=== PATIENT | male | born 1945 | race Caucasian/White ===

== ENCOUNTER 2018-08-27 14:21 | Emergency (ER) | payer MEDICARE, OTHER ==
--- NOTE | 2018-08-27 15:13 | ER Document Report ---
ED Medical Screen (RME) - General Chief Complaint: Flank Pain Stated Complaint: ABDOMINAL PAIN Time Seen by Provider: 08/27/18 14:33 Mode of Arrival: Ambulatory Information source: Patient Notes: Patient is a 72-year-old male who recently had a kidney stone diagnosed with a urinary tract infection. Patient was started on Levaquin. Patient states that his pain has persisted. He denies any nausea, vomiting, diarrhea or fevers. He reports he now has bilateral flank pain and pain across his low abdomen. Patient's vital signs are within normal limits, patient appears nontoxic and is in no acute distress. PHYSICAL EXAMINATION: GENERAL: Well-appearing, well-nourished and in no acute distress. HEAD: Atraumatic, normocephalic. EYES: Pupils equal round extraocular movements intact, conjunctiva are normal. ENT: Nares patent NECK: Normal range of motion LUNGS: No respiratory distress Musculoskeletal: Normal range of motion NEUROLOGICAL: Normal speech, normal gait. PSYCH: Normal mood, normal affect. SKIN: Warm, Dry, normal turgor, no rashes or lesions noted. I have greeted and performed a rapid initial assessment of this patient. A comprehensive ED assessment and evaluation of the patient, analysis of test results and completion of the medical decision making process will be conducted by additional ED providers. Dictation of this chart was performed using [email or web address] software; therefore, there may be some unintended grammatical errors. TRAVEL OUTSIDE OF THE [place] IN LAST 30 DAYS: No - Related Data Allergies/Adverse Reactions: Shellfish * [Shellfish] Allergy (Intermediate, Verified 08/27/18 14:25) WHEEZING oxycodone HCl [From Percocet] Allergy (Verified 08/27/18 14:25) Difficulty breathing Past Medical History - Past Medical History Cardiac Medical History: Reports: Hx Coronary Artery Disease - STENT, Hx Heart A ttack, Hx Hypercholesterolemia, Hx Hypertension Pulmonary Medical History: Denies: Hx Asthma, Hx Bronchitis, Hx COPD, Hx Pneumonia Neurological Medical History: Denies: Hx Cerebrovascular Accident, Hx Seizures Endocrine Medical History: Reports: Hx Diabetes Mellitus Type 2 Renal/ Medical History: Denies: Hx Peritoneal Dialysis Musculoskeltal Medical History: Reports Hx Arthritis - LE and UE Past Surgical History: Reports: Hx Cardiac Catheterization - 11 YEARS AGO. Denies: Hx Adenoidectomy - Immunizations Hx Diphtheria, Pertussis, Tetanus Vaccination: Yes Physical Exam - Vital signs Vitals: Temp Pulse Resp BP Pulse Ox 98.4 F 80 18 149/77 H 96 08/27/18 14:30 08/27/18 14:30 08/27/18 14:30 08/27/18 14:30 08/27/18 14:30 Course - Vital Signs Vital signs: Temp Pulse Resp BP Pulse Ox 98.4 F 80 18 149/77 H 96 08/27/18 14:30 08/27/18 14:30 08/27/18 14:30 08/27/18 14:30 08/27/18 14:30
[2018-08-27 15:19] LABS: APPEARANCE,URINE CLEAR; BILIRUBIN,URINE NEGATIVE (NEGATIVE); COLOR,URINE STRAW; GLUCOSE, URINE >=500 mg/dL (NEGATIVE); KETONES,URINE NEGATIVE (NEGATIVE); LEUKOCYTE ESTERASE,URINE SMALL (NEGATIVE); NITRITE,URINE NEGATIVE (NEGATIVE); PROTEIN,URINE NEGATIVE (NEGATIVE); URINE SPECIFIC GRAVITY 1.009; UROBILINOGEN,URINE NEGATIVE mg/dL (<2.0)
[2018-08-27 15:57] LABS: ABSOLUTE EOSINOPHILS # (AUTO) 0.1 10^3/uL (0.0-0.6); ABSOLUTE LYMPHOCYTES (AUTO) 0.9 10^3/uL (0.5-4.7); ABSOLUTE MONOCYTES (AUTO) 1.4 10^3/uL (0.1-1.4); ABSOLUTE NEUT (AUTO) 12.5 10^3/uL (1.7-8.2); BASOPHILS % (AUTO) 0.2 % (0-2); EOSINOPHILS % (AUTO) 0.4 % (0-6); HEMOGLOBIN 15.7 g/dL (13.5-17.0); LYMPHOCYTES % (AUTO) 5.8 % (13-45); MEAN CORPUSCULAR HEMOGLOBIN 29.6 pg (27.0-33.4); MEAN CORPUSCULAR HGB CONC 34.1 g/dL (32.0-36.0); MEAN CORPUSCULAR VOLUME 87 fl (80-97); MONOCYTES % (AUTO) 9.3 % (3-13); PLATELET COUNT 192 10^3/uL (150-450); RED CELL DISTRIBUTION WIDTH 13.8 % (11.5-14.0); SEGMENTED NEUTROPHILS % (AUTO) 84.3 % (42-78); TOTAL CELLS COUNTED % (AUTO) 100 %; WHITE BLOOD COUNT 14.8 10^3/uL (4.0-10.5)
--- NOTE | 2018-08-27 16:04 | RADIOLOGY REPORT (SQ) ---
EXAM DESCRIPTION: U/S RETROPERITON (RENAL/AORTA) COMPLETED DATE/TIME: 08/27/2018 3:39 pm REASON FOR STUDY: eval for renal stone COMPARISON: None. TECHNIQUE: Dynamic and static grayscale images acquired of the kidneys and bladder and recorded on P ACS. Additional selected color Doppler and spectral images recorded. LIMITATIONS: None. FINDINGS: RIGHT KIDNEY: Normal size. Normal echogenicity. No solid or suspicious masses. No hydronep hrosis. No calcifications. LEFT KIDNEY: Normal size. Normal echogenicity. No solid or suspicious masses. No hydronephrosis. No calcifications. BLADDER: No masses. OTHER FINDINGS: No other significant finding. IMPRESSION: NORMAL RENAL AND BLADDER ULTRASOUND. TECHNICAL DOCUMENTATION: JOB ID: [id number] [email or web address]- All Rights Reserved Reading location - IP/workstation name: [email or web address]
[2018-08-27] MEDS ORDERED: ONDANSETRON 4 MG TAB.RAPDIS PO ONE (16:11)
[2018-08-27 16:16] LABS: ALANINE AMINOTRANSFERASE 23 U/L (21-72); ALBUMIN 3.8 g/dL (3.5-5.0); ALKALINE PHOSPHATASE 61 U/L (38-126); ANION GAP 11 (5-19); ASPARTATE AMINO TRANSFERASE 33 U/L (17-59); BILIRUBIN,DIRECT 0.4 mg/dL (0.0-0.4); BILIRUBIN,TOTAL 0.9 mg/dL (0.2-1.3); BLOOD UREA NITROGEN 20 mg/dL (7-20); CARBON DIOXIDE 25 mmol/L (22-30); CHLORIDE 102 mmol/L (98-107); GLUCOSE 130 mg/dL (75-110); SODIUM 137.8 mmol/L (137-145)
[2018-08-27 16:23] LABS: LIPASE 3742.5 U/L (23-300)
--- NOTE | 2018-08-27 16:35 | RADIOLOGY REPORT (SQ) ---
EXAM DESCRIPTION: ABDOMEN 2 VIEWS COMPLETED DATE/TIME: 08/27/2018 4:25 pm REASON FOR STUDY: abdominal pain, constipation COMPARISON: None. NUMBER OF VIEWS: Two views. TECHNIQUE: Supine and erect/decubitus radiographic images of the abdomen acquired. LIMITATIONS: None. FINDINGS: FREE AIR: None. No abnormal gas collections. LUNG BASES: Clear. BOWEL GAS PATTERN: Nonobstructive pattern. No dilated loops or air fluid levels. Marked amount of fe giuliana material in the colon. Fluid level on the right colon. CALCIFICATIONS: No suspicious calcifications. SOFT TISSUES: No gross mass or suggestion of organomegaly. HARDWARE: None in the abdomen. BONES: No acute fracture. No worrisome bone lesions. OTHER: No other significant finding. IMPRESSION: Marked constipation. Fluid level in the right colon. TECHNICAL DOCUMENTATION: JOB ID: [id number] [employer]- All Rights Reserved Reading location - IP/workstation name: [email or web address]
[2018-08-27] MEDS ORDERED: MAGNESIUM CITRATE 296 ML BOTTLE PO ONE (17:13)
--- NOTE | 2018-08-27 17:40 | ER Document Report ---
ED General - General Chief Complaint: Flank Pain Stated Complaint: ABDOMINAL PAIN Time Seen by Provider: 08/27/18 14:33 Primary Care Provider: SWETHA FINE MD [Primary Care Provider] - Follow up as needed Mode of Arrival: Ambulatory TRAVEL OUTSIDE OF THE [place] IN LAST 30 DAYS: No - HPI Notes: Patient presents to the emergency department for evaluation. He has a multitude of issues. He states back on July 14 he started having "kidney pain." He saw his primary doctor and urologist. He was diagnosed with a potential kidney stone as well as UTI. He states he has frequent UTIs and/or prostatitis. He has a standing prescription for Levaquin which he takes. He denies any fevers or chills. No nausea or vomiting. He states his pain seemed to get better, but over the last several days he feels as if "both of his kidneys" hurt. He states today he started noticing pain in the left lower quadrant. He denies any fever or chills. No nausea or vomiting. Eating and drinking normally. He does relate that he has not had a good bowel movement in the last 5 days. He states he normally moves his bowels daily. - Related Data Allergies/Adverse Reactions: Shellfish * [Shellfish] Allergy (Intermediate, Verified 08/27/18 14:25) WHEEZING oxycodone HCl [From Percocet] Allergy (Verified 08/27/18 14:25) Difficulty breathing Past Medical History - General Information source: Patient - Social History Smoking Status: Former Smoker Drug Abuse: None Family History: Reviewed & Not Pertinent Patient has suicidal ideation: No Patient has homicidal ideation: No - Past Medical History Cardiac Medical History: Reports: Hx Coronary Artery Disease - STENT, Hx Heart Attack, Hx Hypercholesterolemia, Hx Hypertension Pulmonary Medical History: Denies: Hx Asthma, Hx Bronchitis, Hx COPD, Hx Pneumonia Neurological Medical History: Denies: Hx Cerebrovascular Accident, Hx Seizures Endocrine Medical History: Reports: Hx Diabetes Mellitus Type 2 Renal/ Medical History: Denies: Hx Peritoneal Dialysis Musculoskeletal Medical History: Reports Hx Arthritis - LE and UE Past Surgical History: Reports: Hx Cardiac Catheterization - 11 YEARS AGO. Denies: Hx Adenoidectomy - Immunizations Hx Diphtheria, Pertussis, Tetanus Vaccination: Yes Hx Pneumococcal Vaccination: 05/17/10 Review of Systems - Review of Systems Constitutional: No symptoms reported EENT: No symptoms reported Cardiovascular: No symptoms reported Respiratory: No symptoms reported Gastrointestinal: See HPI Genitourinary: See HPI Male Genitourinary: No symptoms reported Musculoskeletal: No symptoms reported Skin: No symptoms reported Neurological/Psychological: No symptoms reported Physical Exam - Vital signs Vitals: Temp Pulse Resp BP Pulse Ox 98.4 F 80 18 149/77 H 96 08/27/18 14:30 08/27/18 14:30 08/27/18 14:30 08/27/18 14:30 08/27/18 14:30 - Notes Notes: Vital signs reviewed, please refer to chart. Patient is normocephalic, atraumatic. Pupils equal round, reactive to light. Neck is supple without meningismus. Heart is regular rate and rhythm. Lungs are clear to auscultation bilaterally. Abdomen is soft, nontender, normoactive bowel sounds throughout. Extremities without cyanosis, clubbing, edema. Peripheral pulses are equal. Sk in is warm and dry. Patient is awake, alert, neurological exam is nonfocal. Course - Re-evaluation Re-evalutation: 08/27/18 17:38 Patient presents to the emergency department for evaluation. He had initial workup as ordered through triage. Ultrasound of the abdomen did not reveal any hydronephrosis. His urine does reveal some continued white blood cells, but he already has a few more days of Levaquin left. I believe this left lower quadrant pain is secondary to constipation. Abdominal films failed to reveal any signs of obstruction. I did go ahead and order magnesium citrate. We will also tell the patient to take MiraLAX, twice daily, until he has improvement in his stool output. He is to continue his antibiotics and follow-up with urology next week. Return to the emergency department with worsening or new concerning symptoms. - Vital Signs Vital signs: Temp Pulse Resp BP Pulse Ox 98.4 F 80 18 149/77 H 96 08/27/18 14:30 08/27/18 14:30 08/27/18 14:30 08/27/18 14:30 08/27/18 14:30 - Laboratory Result Diagrams: 08/27/18 15:45 08/27/18 15:45 Laboratory results interpreted by me: 08/27/18 08/27/18 08/27/18 14:55 15:45 15:45 WBC 14.8 H Seg Neutrophils % 84.3 H Lymphocytes % 5.8 L Absolute Neutrophils 12.5 H Glucose 130 H Lipase 3742.5 H Urine Glucose (UA) >=500 H Ur Leukocyte Esterase SMALL H Discharge - Discharge Clinical Impression: UTI (urinary tract infection), Constipation Condition: Stable Disposition: HOME, SELF-CARE Instructions: Urinary Tract Infection ([facility]), Constipation ([facility]) Additional Instructions: All of the magnesium citrate at home, at one time, until gone. Start MiraLAX, 1 capful twice daily, until bowel movements are soft. Continue to take your Levaquin as directed. Follow-up with your urologist next week. Return to the emergency department with worsening or new concerning symptoms of any sort. Forms: Elevated Blood Pressure Referrals: SWETHA FINE MD [Primary Care Provider] - Follow up as needed
[2018-08-27 17:50] VITALS: BP 154/82
== END 2018-08-27 17:50 | disposition home or self-care (01) ==
LOC: ER 14:21
DX: K59.00 Constipation, unspecified (principal); N39.0 Urinary tract infection, site not specified; Z79.2 Long term (current) use of antibiotics; E11.9 Type 2 diabetes mellitus without complications; I25.10 Atherosclerotic heart disease of native coronary artery without angina pectoris; I10 Essential (primary) hypertension; Z95.5 Presence of coronary angioplasty implant and graft; Z91.013 Allergy to seafood; Z88.5 Allergy status to narcotic agent; Z87.891 Personal history of nicotine dependence
CPT/HCPCS: 99284; 36415; 87086; 83690; 85025; 80053; 81001; 74019; 76770; J3490; A9270; S0119

== ENCOUNTER 2020-03-12 08:35 | Emergency (ER) | payer MEDICARE, OTHER ==
--- NOTE | 2020-03-12 10:19 | ER Document Report ---
ED Flu Like - General Chief Complaint: Flu Symptoms Stated Complaint: HEADACHE/NAUSEA/FEVER Time Seen by Provider: 03/12/20 09:30 Primary Care Provider: SWETHA FINE MD [Primary Care Provider] - Follow up as needed Notes: CHIEF COMPLAINT: Cough for 3 to 4 days HPI: 74-year-old female presenting with cough that is mildly productive for 3 to 4 days. No chest pain. Mild shortness of breath. Patient states that he does have history of UTIs and was placed on a 3-week course of an antibiotic he takes twice daily but does not remember the name of 2 weeks ago. Patient had been on Levaquin prior to that. Has not had a fever. Denies abdominal pain nausea vomiting. ROS: See HPI - all other systems were reviewed and are otherwise negative Constitutional: no fever Eyes: no drainage, no blurred vision ENT: no runny nose, no sore throat Cardiovascular: no chest pain Resp: + SOB, + cough GI: no vomiting, no diarrhea, no abdominal pain : no dysuria Integumentary: no rash Allergy: no hives Musculoskeletal: no extremity pain or swelling Neurological: no numbness/tingling, no weakness MEDICATIONS: I agree with the patient medications as charted by the RN. ALLERGIES: I agree with the allergies as charted by the RN. PAST MEDICAL HISTORY/PAST SURGICAL HISTORY: Reviewed and agree as charted by RN. SOCIAL HISTORY: Reviewed and agree as charted by RN. FAMILY HISTORY: No significant familial comorbid conditions directly related to patient complaint EXAM: Reviewed vital signs as charted by RN. CONSTITUTIONAL: Alert and oriented and responds appropriately to questions. Well-appearing; well-nourished HEAD: Normocephalic; atraumatic EYES: PERRL; Conjunctivae clear, sclerae non-icteric ENT: normal nose; no rhinorrhea; moist mucous membranes; pharynx without lesions noted, no uvula edema or deviation, no tonsillar hypertrophy, phonation normal NECK: Supple without meningismus; non-tender; no cervical lymphadenopathy, no masses CARD: RRR; no murmurs, no clicks, no rubs, no gallops; symmetric distal pulses RESP: Normal chest excursion without splinting or tachypnea; breath sounds clear and equal bilaterally; no wheezes, no rhonchi, no rales, pulse oximetry 97% on room air not hypoxic ABD/GI: Normal bowel sounds; non-distended; soft, non-tender, no rebound, no guarding; no palpable organomegaly or masses. BACK: The back appears normal and is non-tender to palpation, there is no CVA tenderness EXT: Normal ROM in all joints; non-tender to palpation; no cyanosis, no effusions, no edema SKIN: Normal color for age and race; warm; dry; good turgor; no acute lesions noted NEURO: Moves all extremities equally; Motor and sensory function intact PSYCH: The patient's mood and manner are appropriate. Grooming and personal hygiene are appropriate. MDM: 74-year-old male does have cardiac history presenting with cough shortness of breath over the last 3 days. Believes he may have been exposed to someone who was ill. Will obtain flu and Covid testing and chest x-ray. He is on an u nknown antibiotic that he takes twice daily he states he was told by his urologist it was good against pneumonia as well. Will obtain baseline screening labs including 1 set of cardiac enzymes TRAVEL OUTSIDE OF THE [place] IN LAST 30 DAYS: No - Related Data Allergies/Adverse Reactions: Shellfish * [Shellfish] Allergy (Intermediate, Verified 03/12/20 08:42) WHEEZING oxycodone HCl [From Percocet] Allergy (Verified 03/12/20 08:42) Difficulty breathing Past Medical History - Social History Smoking Status: Never Smoker Family History: Reviewed & Not Pertinent, CAD - Past Medical History Cardiac Medical History: Reports: Hx Coronary Artery Disease - STENT, Hx Heart Attack, Hx Hypercholesterolemia, Hx Hypertension Pulmonary Medical History: Denies: Hx Asthma, Hx Bronchitis, Hx COPD, Hx Pneumonia Neurological Medical History: Denies: Hx Cerebrovascular Accident, Hx Seizures Endocrine Medical History: Reports: Hx Diabetes Mellitus Type 2 Renal/ Medical History: Reports: Hx Kidney Stones. Denies: Hx Peritoneal Dialysis Musculoskeletal Medical History: Reports Hx Arthritis Past Surgical History: Reports: Hx Cardiac Catheterization - 11 YEARS AGO. Denies: Hx Adenoidectomy - Immunizations Hx Diphtheria, Pertussis, Tetanus Vaccination: Yes Hx Pneumococcal Vaccination: 05/17/10 Physical Exam - Vital signs Vitals: Temp Pulse Resp BP Pulse Ox 97.8 F 96 16 89/60 L 96 03/12/20 08:42 03/12/20 08:42 03/12/20 08:42 03/12/20 08:42 03/12/20 08:42 Course - Re-evaluation Re-evalutation: 03/12/20 11:12 EKG normal sinus rhythm with a ventricular rate of 90 NE 176 QT 332, QTc 407. No other ectopy normal EKG. Interpreted by emergency department physician. Notified by nursing that patient's troponin 1.68. 03/12/20 11:[address] Jaylan Briggs, Cardiology. Case was discussed. He is concerned about NSTEMI recommends heparin drip. Patient has no contraindications at this time. Dr. 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 Pitts is. discussed with attending Dr. Yoo. 03/12/20 11:34 spoke with [facility] Transfer line, awaiting call back from Dr. Tai 03/12/20 12:19 I spoke with the transfer center again still awaiting callback from Dr. Tai he is apparently seeing the patient in their ER and will call me when he is done 03/12/20 12:[address] Jayson Tai hospitalist at [facility]. Case was discussed. We did review the patient's chest x-ray and labs. Aware patient is on a heparin drip. Accepts patient for transfer, did request Covid test. I did discuss transfer with the patient who is in agreement - Vital Signs Vital signs: Temp Pulse Resp BP Pulse Ox 97.8 F 96 28 H 102/56 L 97 03/12/20 09:22 03/12/20 08:42 03/12/20 12:04 03/12/20 08:45 03/12/20 12:04 - Laboratory Result Diagrams: 03/12/20 09:54 03/12/20 09:54 Laboratory results interpreted by me: 03/12/20 03/12/20 03/12/20 09:54 09:54 09:54 Hgb 13.0 L Hct 37.4 L Lymph % (Auto) 6.4 L [place] % (Auto) 14.3 H Absolute Monos (auto) 1.5 H Seg Neutrophils % 78.3 H PT APTT Sodium 132.8 L Carbon Dioxide 18 L BUN 28 H Creatinine 1.30 H Est GFR (MDRD) Non-Af 54 L Glucose 167 H AST 72 H NT-Pro-B Natriuret Pep Total Protein 6.2 L Albumin 3.2 L Urine Protein 30 H Urine Ketones 20 H Urine Ascorbic Acid 40 H 03/12/20 03/12/20 09:54 09:54 Hgb Hct Lymph % (Auto) [place] % (Auto) Absolute Monos (auto) Seg Neutrophils % PT 15.7 H APTT 36.5 H Sodium Carbon Dioxide BUN Creatinine Est GFR (MDRD) Non-Af Glucose AST NT-Pro-B Natriuret Pep 3800 H Total Protein Albumin Urine Protein Urine Ketones Urine Ascorbic Acid Discharge - Discharge Clinical Impression: NSTEMI (non-ST elevated myocardial infarction) Condition: Fair Disposition: [facility] Referrals: SWETHA FINE MD [Primary Care Provider] - Follow up as needed
[2020-03-12 10:41] LABS: APPEARANCE,URINE SLIGHTLY-CLOUDY; BILIRUBIN,URINE NEGATIVE (NEGATIVE); COLOR,URINE AMBER; GLUCOSE, URINE NEGATIVE (NEGATIVE); KETONES,URINE 20 mg/dL (NEGATIVE); LEUKOCYTE ESTERASE,URINE NEGATIVE (NEGATIVE); NITRITE,URINE NEGATIVE (NEGATIVE); PROTEIN,URINE 30 mg/dL (NEGATIVE); URINE SPECIFIC GRAVITY 1.028; UROBILINOGEN,URINE NEGATIVE mg/dL (<2.0)
[2020-03-12 10:50] LABS: ALBUMIN 3.2 g/dL (3.5-5.0); ALKALINE PHOSPHATASE 82 U/L (38-126); ANION GAP 12 (5-19); ASPARTATE AMINO TRANSFERASE 72 U/L (17-59); BILIRUBIN,DIRECT 0.2 mg/dL (0.0-0.4); BILIRUBIN,TOTAL 0.9 mg/dL (0.2-1.3); BLOOD UREA NITROGEN 28 mg/dL (7-20); CALCIUM 8.5 mg/dL (8.4-10.2); CARBON DIOXIDE 18 mmol/L (22-30); CHLORIDE 103 mmol/L (98-107); GLUCOSE 167 mg/dL (75-110); POTASSIUM 4.8 mmol/L (3.6-5.0); TOTAL PROTEIN 6.2 g/dL (6.3-8.2)
[2020-03-12] MEDS ORDERED: NORMAL SALINE 1000 ML 1,000 ML IV ONE (10:52)
[2020-03-12 10:53] LABS: A TYPE INFLUENZA AG NEGATIVE (NEGATIVE); B INFLUENZA AG NEGATIVE (NEGATIVE)
--- NOTE | 2020-03-12 10:59 | RADIOLOGY REPORT (SQ) ---
EXAM DESCRIPTION: CHEST SINGLE VIEW IMAGES COMPLETED DATE/TIME: 03/12/2020 10:46 am REASON FOR STUDY: cough COMPARISON: 02/28/2013 EXAM PARAMETERS: NUMBER OF VIEWS: One view. TECHNIQUE: Single frontal radiographic view of the chest acquired. RADIATION DOSE: NA LIMITATIONS: None. FINDINGS: LUNGS AND PLEURA: No opacities, masses or pneumothorax. No pleural effusion. MEDIASTINUM AND HILAR STRUCTURES: No masses. Contour normal. HEART AND VASCULAR STRUCTURES: Heart normal in size. Normal vasculature. BONES: No acute findings. HARDWARE: None in the chest. OTHER: No other significant finding. IMPRESSION: NO ACUTE RADIOGRAPHIC FINDING IN THE CHEST. TECHNICAL DOCUMENTATION: JOB ID: [id number] 2010 [employer]- All Rights Reserved Reading location - IP/workstation name: [email or web address]
[2020-03-12 11:06] LABS: ABSOLUTE EOSINOPHILS # (AUTO) 0.1 10^3/uL (0.0-0.6); ABSOLUTE LYMPHOCYTES (AUTO) 0.7 10^3/uL (0.5-4.7); ABSOLUTE MONOCYTES (AUTO) 1.5 10^3/uL (0.1-1.4); ABSOLUTE NEUT (AUTO) 8.1 10^3/uL (1.7-8.2); BASOPHILS % (AUTO) 0.3 % (0-2); EOSINOPHILS % (AUTO) 0.7 % (0-6); HEMATOCRIT 37.4 % (37.9-51.0); LYMPHOCYTES % (AUTO) 6.4 % (13-45); MONOCYTES % (AUTO) 14.3 % (3-13); PLATELET COUNT 161 10^3/uL (150-450); RED CELL DISTRIBUTION WIDTH 13.4 % (11.5-14.0); SEGMENTED NEUTROPHILS % (AUTO) 78.3 % (42-78); TOTAL CELLS COUNTED % (AUTO) 100 %; WHITE BLOOD COUNT 10.3 10^3/uL (4.0-10.5)
[2020-03-12 11:08] LABS: MEAN CORPUSCULAR HEMOGLOBIN 29.4 pg (27.0-33.4); MEAN CORPUSCULAR VOLUME 85 fl (80-97); RED BLOOD COUNT 4.42 10^6/uL (4.35-5.55)
[2020-03-12 11:09] LABS: MEAN CORPUSCULAR HGB CONC 34.7 g/dL (32.0-36.0)
[2020-03-12] MEDS ORDERED: HEPARIN SODIUM,PORCINE/D5W 25,000 UNIT/250 ML RTUINJ IV PRN (11:26)
[2020-03-12] MEDS ORDERED: HEPARIN SOD (PORCINE) 1,000 UNIT/ML 10 ML VIAL IV ONE (11:26)
[2020-03-12 11:47] LABS: INTERNATIONAL RATION (INR) 1.23; PROTHROMBIN TIME 15.7 SEC (11.4-15.4)
[2020-03-12 11:48] LABS: PARTIAL THROMBOPLASTIN TIME 36.5 SEC (23.5-35.8)
[2020-03-12] MEDS ORDERED: ASPIRIN 81 MG TABLET, CHEWABLE PO ONE (12:01)
--- NOTE | 2020-03-12 13:01 | EKG REPORT ---
SEVERITY:- NORMAL ECG - SINUS RHYTHM : Confirmed by: John Burns MD 12-Mar-2020 13:00:20
[2020-03-12 13:05] VITALS: BP 126/83
== END 2020-03-12 16:24 | disposition short-term general hospital (02) ==
LOC: ER 08:35
DX: I21.4 Non-ST elevation (NSTEMI) myocardial infarction (principal); R51.9 Headache, unspecified; R05 Cough; R11.0 Nausea; R50.9 Fever, unspecified; I25.10 Atherosclerotic heart disease of native coronary artery without angina pectoris; E78.00 Pure hypercholesterolemia, unspecified; I10 Essential (primary) hypertension; E11.9 Type 2 diabetes mellitus without complications; Z87.440 Personal history of urinary (tract) infections; Z87.442 Personal history of urinary calculi; I25.2 Old myocardial infarction; Z20.828 Contact with and (suspected) exposure to other viral communicable diseases
CPT/HCPCS: 93005; 99285; 96375; 96365; 96366; 36415; 85025; 85610; 85730; 80053; 81001; 84484; 87804; 83880; 71045; 93010; U0003 ×2; J1644 ×2; A9270; C9803; 87635